=== PATIENT | female | born 1950 | race Two or more races ===

== ENCOUNTER 2017-06-26 12:52 | Emergency (ER) | payer MEDICARE, OTHER ==
[~2017-06-26] VITALS: Ht 157.5 cm; Wt 81.6 kg
[2017-06-26 12:55] VITALS: BP 112/71
[2017-06-26] MEDS ORDERED: ASPirin 81 mg TAB PO ONE (13:00)
[2017-06-26] MEDS ORDERED: SODIUM CHLORIDE 0.9% 1,000 ML IVB ONE (13:00)
[2017-06-26 13:26] LABS: Basophils # (auto) 0 uL; Basophils % (auto) 0.3 % (0.0-2.0); CONDITION Y; Eosinophils # (auto) 0.1 uL; Lymphocytes # (auto) 1.9 uL; Lymphocytes % (auto) 27.3 % (10.0-50.0); Mean Corpuscular Hemoglobin 29.9 pg (28.0-32.0); Mean Corpuscular Hgb Conc. 33.3 g/dL (32.0-36.0); Mean Corpuscular Volume 89.7 fL (80.0-100.0); Mean Platelet Volume 8.9 fL (7.4-10.4); Monocytes # (auto) 0.4 uL; Monocytes % (auto) 5.9 % (0.0-12.0); Neutrophils # (auto) 4.6 uL; Neutrophils % (auto) 64.5 % (37.0-80.0); Platelet Count (auto) 280 10^3/uL (140-450); Red Cell Distribution Width 13.4 % (11.6-16.0); White Blood Cell 7.1 10^3/uL (4.4-10.8)
[2017-06-26 13:42] LABS: Albumin 3.7 g/dL (3.4-5.0); BUN/Creatinine Ratio 21.7; Calcium 10.1 mg/dL (8.5-10.1); Magnesium 2.3 mg/dL (1.6-2.6); Potassium 3.8 mmol/L (3.5-5.1)
[2017-06-26 13:45] LABS: Bilirubin, Total 0.5 mg/dL (0.2-1.0); Total Protein 7.6 g/dL (6.4-8.2)
== END 2017-06-26 18:14 | disposition home or self-care (01) ==
LOC: ER 12:55
DX: I47.1 Supraventricular tachycardia (principal); E78.5 Hyperlipidemia, unspecified; I10 Essential (primary) hypertension; E07.9 Disorder of thyroid, unspecified; R42 Dizziness and giddiness
CPT/HCPCS: 36415; 71010; 80053; 83735; 85025; 93005; 94761; 96360; 99285; J7040

== ENCOUNTER 2018-01-10 10:10 | Emergency (ER) | payer MEDICARE, OTHER ==
[~2018-01-10] VITALS: Ht 157.5 cm; Wt 83.9 kg
[2018-01-10] MEDS ORDERED: ACETAMINOPHEN 325 MG TAB PO ONE (12:45)
[2018-01-10] MEDS ORDERED: ACETAMINOPHEN 500 MG TAB PO ONE (12:45)
[2018-01-10 14:01] VITALS: BP 109/65
== END 2018-01-10 14:06 | disposition home or self-care (01) ==
LOC: ER 10:10
DX: J02.9 Acute pharyngitis, unspecified (principal); I10 Essential (primary) hypertension; E78.5 Hyperlipidemia, unspecified
CPT/HCPCS: 71046; 87804

== ENCOUNTER 2018-01-12 00:45 | Emergency (ER) | payer MEDICARE ==
[~2018-01-12] VITALS: Ht 157.5 cm; Wt 74.8 kg
[2018-01-12 01:51] LABS: Basophils # (auto) 0.1 uL; Basophils % (auto) 1.5 % (0.0-2.0); Eosinophils # (auto) 0.2 uL; Eosinophils % (auto) 2.4 % (0.0-7.0); Hematocrit 38.5 % (36.0-46.0); Hemoglobin 12.6 g/dL (12.2-16.2); Lymphocytes # (auto) 0.7 uL; Lymphocytes % (auto) 10.3 % (10.0-50.0); Mean Corpuscular Hemoglobin 29.3 pg (28.0-32.0); Mean Corpuscular Hgb Conc. 32.8 g/dL (32.0-36.0); Mean Corpuscular Volume 89.4 fL (80.0-100.0); Monocytes # (auto) 0.8 uL; Monocytes % (auto) 12.6 % (0.0-12.0); Neutrophils # (auto) 4.8 uL; Neutrophils % (auto) 73.2 % (37.0-80.0); Platelet Count (auto) 219 10^3/uL (140-450); Red Blood Cells 4.31 10^6/uL (4.0-5.20); Red Cell Distribution Width 13.4 % (11.8-14.3); White Blood Cell 6.5 10^3/uL (4.4-10.8)
[2018-01-12 02:08] LABS: Albumin 3.4 g/dL (3.4-5.0); BUN/Creatinine Ratio 18.8; Calcium 9.5 mg/dL (8.5-10.1); Potassium 3.9 mmol/L (3.5-5.1)
[2018-01-12 02:11] LABS: Bilirubin, Total 0.3 mg/dL (0.2-1.0); Total Protein 7.6 g/dL (6.4-8.2)
[2018-01-12] MEDS ORDERED: SODIUM CHLORIDE 0.9% 500 ML IV ONE (08:20)
[2018-01-12 13:05] VITALS: BP 120/69
== END 2018-01-12 13:23 | disposition home or self-care (01) ==
LOC: EDBD 00:45 → ER 00:49
DX: J40 Bronchitis, not specified as acute or chronic (principal); B34.9 Viral infection, unspecified; M35.3 Polymyalgia rheumatica; E03.9 Hypothyroidism, unspecified; I10 Essential (primary) hypertension; E78.5 Hyperlipidemia, unspecified
CPT/HCPCS: 36415; 71045; 80053; 81002; 83880; 84443; 85025; 93005; 96360

== ENCOUNTER 2018-04-15 04:15 | Inpatient (IN) | payer MEDICARE, OTHER ==
[~2018-04-15] VITALS: Ht 144.8 cm; Wt 81.0 kg
[2018-04-15 06:19] LABS: Basophils # (auto) 0.1 uL; Eosinophils # (auto) 0.1 uL; Eosinophils % (auto) 1.7 % (0.0-7.0); Hematocrit 37.1 % (36.0-46.0); Hemoglobin 12.1 g/dL (12.2-16.2); Lymphocytes # (auto) 2.2 uL; Lymphocytes % (auto) 27.8 % (10.0-50.0); Mean Corpuscular Hemoglobin 30.1 pg (28.0-32.0); Mean Corpuscular Hgb Conc. 32.6 g/dL (32.0-36.0); Mean Corpuscular Volume 92.2 fL (80.0-100.0); Monocytes # (auto) 0.6 uL; Monocytes % (auto) 7.8 % (0.0-12.0); Neutrophils # (auto) 4.9 uL; Neutrophils % (auto) 61.7 % (37.0-80.0); Nucleated Red Blood Cells % 0.1 %; Platelet Count (auto) 264 10^3/uL (140-450); Red Blood Cells 4.02 10^6/uL (4.0-5.20); Red Cell Distribution Width 13.6 % (11.8-14.3)
[2018-04-15] MEDS ORDERED: SODIUM CHLORIDE 0.9% 1,000 ML IV ONE (06:30)
[2018-04-15] MEDS ORDERED: ASPirin 81 mg TAB PO ONE (06:30)
[2018-04-15 06:52] LABS: Albumin 3.1 g/dL (3.4-5.0); BUN/Creatinine Ratio 17.8; Bilirubin, Total 0.4 mg/dL (0.2-1.0); Calcium 10.4 mg/dL (8.5-10.1); Magnesium 2.3 mg/dL (1.6-2.6); Total Protein 7.3 g/dL (6.4-8.2)
[2018-04-15] MEDS ORDERED: ENOXAPARIN SOD 80 MG/0.8ML SYRINGE SC ONE (07:15)
[2018-04-15] MEDS ORDERED: TEMAZEPAM 15 MG CAP PO PRN (08:45)
[2018-04-15] MEDS ORDERED: MORPHINE SULFATE 8mg/ml INJ SDV IV PRN ×2 (08:45)
[2018-04-15] MEDS ORDERED: ACETAMINOPHEN 500 MG TAB PO PRN (08:45)
[2018-04-15] MEDS ORDERED: NITROGLYCERIN 0.4 MG SL TAB SL PRN (08:45)
[2018-04-15] MEDS ORDERED: LACTULOSE 20Gm/30ML SOLN PO PRN (08:45)
[2018-04-15] MEDS ORDERED: PROMETHAZINE HCL 25 MG/ML 1ML IV PRN (08:45)
[2018-04-15] MEDS ORDERED: LORazepam 0.5 MG TAB PO PRN (08:45)
[2018-04-15] MEDS ORDERED: HYDROcodone-ACET 5/325MG TAB PO PRN (08:45)
[2018-04-15 09:15] LABS: INR 0.95 (0.9-1.15); Partial Thromboplastin Time 27.1 sec (23.78-33.04); Prothrombin Time 10.2 sec (9.27-12.13)
[2018-04-15] MEDS: SODIUM CHLORIDE 0.9% 1,000 ML IV SCH ×2 (09:22→21:13)
[2018-04-15] MEDS ORDERED: METOPROLOL TARTRATE 25 MG TAB PO SCH (10:00)
[2018-04-15 13:25] VITALS: BP 117/70
[2018-04-15 14:17] LABS: Urine Bacteria NONE SEEN /hpf (None Seen); Urine Blood TRACE /uL (Negative); Urine Mucus FEW (None Seen); Urine Specific Gravity 1.013 (1.001-1.035); Urine WBC <1 /hpf (0 - 5)
[2018-04-15 14:35] LABS: Alcohol, Urine < 3.0 mg/dL (0-5); Amphetamine Screen, Urine NEGATIVE (NEGATIVE); Barbiturate Scree,Urine NEGATIVE (NEGATIVE); Benzodiazephine Screen, Urine NEGATIVE (NEGATIVE); Cannabinoid Screen, Urine NEGATIVE (NEGATIVE); Cocaine Screen, Urine NEGATIVE (NEGATIVE); Opiate Scree,Urine NEGATIVE (NEGATIVE); Phencyclidine Screen, Urine NEGATIVE (NEGATIVE)
[2018-04-15 14:59] VITALS: BP 117/70
[2018-04-15] MEDS ORDERED: ATOR20TA50 PO (15:12)
[2018-04-15 17:15] VITALS: BP 109/53
[2018-04-15] MEDS: METOPROLOL TARTRATE 50 MG TAB PO SCH (21:30)
[2018-04-15] MEDS: AMIODARONE HCL 200 MG TAB PO SCH (21:30)
[2018-04-15 22:00] VITALS: BP 108/59
[2018-04-15] MEDS ORDERED: ATORVASTATIN 20 MG TAB PO SCH (22:00)
[2018-04-16 05:12] VITALS: BP 121/70
[2018-04-16 07:11] LABS: Cholesterol 164 mg/dL (< 200); HDL Cholesterol 46 mg/dL (40-59); LDL Cholesterol 107 mg/dL (< 100); Triglycerides 166 mg/dL (< 150)
[2018-04-16 09:00] VITALS: BP 115/50
[2018-04-16] MEDS: AMIODARONE HCL 200 MG TAB PO SCH (09:18)
[2018-04-16] MEDS: METOPROLOL TARTRATE 50 MG TAB PO SCH (09:19)
[2018-04-16] MEDS: SODIUM CHLORIDE 0.9% 1,000 ML IV SCH (09:21)
[2018-04-16] MEDS ORDERED: ENOXAPARIN SOD 40 MG/0.4 ML SYRINGE SC SCH (10:00)
[2018-04-16] MEDS ORDERED: ASPirin 81 mg TAB PO SCH (10:00)
[2018-04-16 12:11] LABS: BUN/Creatinine Ratio 15.7; Calcium 10.1 mg/dL (8.5-10.1); Magnesium 2.6 mg/dL (1.6-2.6); Potassium 4.9 mmol/L (3.5-5.1)
[2018-04-16 13:00] VITALS: BP 109/65
[2018-04-16 13:39] VITALS: BP 109/65
== END 2018-04-16 17:37 | disposition home or self-care (01) | DRG 309 ==
LOC: EDBD 04:15 → ER 04:19 → TELE 04:20 → TELE-WESTW 12:36
PROVIDERS: ADMIT Internal Medicine; ATTEND Internal Medicine
PROC: 5A2204Z Restoration of Cardiac Rhythm, Single (ICD-10-PCS; principal; 2018-04-15)
DX: I47.1 Supraventricular tachycardia (principal); I24.9 Acute ischemic heart disease, unspecified; I11.9 Hypertensive heart disease without heart failure; D64.9 Anemia, unspecified; E21.3 Hyperparathyroidism, unspecified; E66.9 Obesity, unspecified; E78.5 Hyperlipidemia, unspecified; Z68.38 Body mass index [BMI] 38.0-38.9, adult; Z82.49 Family history of ischemic heart disease and other diseases of the circulatory system
CPT/HCPCS: 36415; 71045; 80048; 80053; 80061; 80307; 81001; 82550; 83735; 83880; 84443; 84484; 85025; 85379; 85610; 85652; 85730; 93005; 93306; 96360; 96372; 97163

== ENCOUNTER 2021-11-10 15:33 | Emergency (ER) | payer OTHER ==
[~2021-11-10] VITALS: Ht 152.4 cm; Wt 77.1 kg
[~2021-11-10 15:33] MED LIST: ATOR20TA50 PO
[2021-11-10 19:57] VITALS: BP 119/81
== END 2021-11-10 20:08 | disposition home or self-care (01) ==
LOC: ER 15:33
DX: U07.1 COVID-19 (principal); M79.10 Myalgia, unspecified site; R51.9 Headache, unspecified; E66.9 Obesity, unspecified; I10 Essential (primary) hypertension; E78.5 Hyperlipidemia, unspecified; Z68.33 Body mass index [BMI] 33.0-33.9, adult
CPT/HCPCS: 36415; 71046; 87426

== ENCOUNTER 2022-07-08 10:40 | Emergency (ER) | payer OTHER, MEDICAID ==
[~2022-07-08] VITALS: Ht 152.4 cm; Wt 78.6 kg
[2022-07-08 12:49] LABS: Basophils # (auto) 0.1 10 ^3/uL (0-0.2); Basophils % (auto) 0.8 % (0.0-2.0); Eosinophils # (auto) 0.1 10 ^3/uL (0-0.8); Eosinophils % (auto) 1.1 % (0.0-7.0); Hematocrit 39.4 % (36.0-46.0); Hemoglobin 12.6 g/dL (12.2-16.2); Lymphocytes # (auto) 1.9 10 ^3/uL (0.4-5.4); Lymphocytes % (auto) 20.3 % (10.0-50.0); Mean Corpuscular Hemoglobin 29.6 pg (28.0-32.0); Mean Corpuscular Hgb Conc. 32.1 g/dL (32.0-36.0); Mean Corpuscular Volume 92.2 fL (80.0-100.0); Monocytes # (auto) 0.5 10 ^3/uL (0-1.3); Monocytes % (auto) 5.9 % (0.0-12.0); Neutrophils # (auto) 6.6 10 ^3/uL (1.6-8.6); Neutrophils % (auto) 71.9 % (37.0-80.0); Nucleated Red Blood Cells % 0.2 %; Red Blood Cells 4.27 10^6/uL (4.0-5.20); Red Cell Distribution Width 14.4 % (11.8-14.3); White Blood Cell 9.2 10^3/uL (4.4-10.8)
[2022-07-08 13:00] LABS: Albumin 3.6 g/dL (3.4-5.0); Calcium 10.7 mg/dL (8.5-10.1); Potassium 4.2 mmol/L (3.5-5.1)
[2022-07-08 13:05] LABS: BUN/Creatinine Ratio 18.1; Bilirubin, Total 0.7 mg/dL (0.2-1.0); Total Protein 7.4 g/dL (6.4-8.2)
[2022-07-08 13:21] LABS: Urine Bacteria NONE SEEN /hpf (None Seen); Urine Blood TRACE /uL (Negative); Urine Mucus FEW (None Seen); Urine Specific Gravity 1.017 (1.001-1.035); Urine WBC 9 /hpf (0 - 5)
[2022-07-08 15:45] VITALS: BP 118/60
[2022-07-08] MEDS ORDERED: SODIUM CHLORIDE 0.9% 1,000 ML IV ONE (16:00)
== END 2022-07-08 21:24 | disposition home or self-care (01) ==
LOC: ER 10:40
DX: E83.52 Hypercalcemia (principal); E21.3 Hyperparathyroidism, unspecified; I10 Essential (primary) hypertension; E78.5 Hyperlipidemia, unspecified; R07.89 Other chest pain; Z79.899 Other long term (current) drug therapy
CPT/HCPCS: 36415; 71045; 80053; 81001; 83735; 84484; 85025; 93005; 96360; 99285; J7030

== ENCOUNTER 2022-08-21 08:06 | Inpatient (IN) | payer OTHER, MEDICAID ==
[~2022-08-21] VITALS: Ht 157.5 cm; Wt 78.8 kg
[2022-08-21 09:06] LABS: Basophils # (auto) 0.1 10 ^3/uL (0-0.2); Basophils % (auto) 0.9 % (0.0-2.0); Eosinophils # (auto) 0.2 10 ^3/uL (0-0.8); Eosinophils % (auto) 2.1 % (0.0-7.0); Hematocrit 37.6 % (36.0-46.0); Hemoglobin 12.4 g/dL (12.2-16.2); Lymphocytes # (auto) 2.2 10 ^3/uL (0.4-5.4); Mean Corpuscular Hemoglobin 30.6 pg (28.0-32.0); Mean Corpuscular Hgb Conc. 32.9 g/dL (32.0-36.0); Mean Corpuscular Volume 92.9 fL (80.0-100.0); Monocytes # (auto) 0.5 10 ^3/uL (0-1.3); Monocytes % (auto) 7.4 % (0.0-12.0); Neutrophils # (auto) 4.3 10 ^3/uL (1.6-8.6); Neutrophils % (auto) 59.6 % (37.0-80.0); Red Blood Cells 4.05 10^6/uL (4.0-5.20); Red Cell Distribution Width 14.7 % (11.8-14.3); White Blood Cell 7.2 10^3/uL (4.4-10.8)
[2022-08-21 09:31] LABS: Albumin 3.4 g/dL (3.4-5.0); Calcium 10.5 mg/dL (8.5-10.1); Magnesium 2.5 mg/dL (1.6-2.6); Potassium 4.6 mmol/L (3.5-5.1)
[2022-08-21 09:38] LABS: Bilirubin, Total 0.5 mg/dL (0.2-1.0); Total Protein 6.7 g/dL (6.4-8.2)
[2022-08-21] MEDS ORDERED: ASPirin 325 MG TAB PO ONE (09:45)
[2022-08-21] MEDS ORDERED: SOD CHL 0.45% 1,000 ML IV ONE (11:00)
[2022-08-21] MEDS ORDERED: MORPHINE SULFATE INJ 2 MG/ml SYRG IV PRN ×2 (11:00)
[2022-08-21] MEDS ORDERED: ONDANSETRON HCL 4 MG/2 ML VIAL IV PRN (11:00)
[2022-08-21] MEDS ORDERED: HYDROcodone-ACET 5/325MG TAB PO PRN (11:00)
[2022-08-21] MEDS ORDERED: NITROGLYCERIN 0.4 MG SL TAB SL PRN (11:00)
[2022-08-21 11:44] LABS: Magnesium 2.4 mg/dL (1.6-2.6); Phosphorus 1.8 mg/dL (2.5-4.90)
[2022-08-21 12:15] LABS: Cholesterol 151 mg/dL (< 200)
[2022-08-21 12:18] LABS: HDL Cholesterol 74 mg/dL (40-59); LDL Cholesterol 70 mg/dL (< 100); Triglycerides 71 mg/dL (< 150)
[2022-08-21 14:43] LABS: Urine Bacteria NONE SEEN /hpf (None Seen); Urine Blood Negative /uL (Negative); Urine Specific Gravity 1.004 (1.001-1.035); Urine WBC 1 /hpf (0 - 5)
[2022-08-21] MEDS: ATORVASTATIN 20 MG TAB PO SCH (22:00)
[2022-08-21] MEDS: METOPROLOL TARTRATE 25 MG TAB PO SCH (22:00)
[2022-08-22 04:38] LABS: Basophils # (auto) 0.1 10 ^3/uL (0-0.2); Eosinophils # (auto) 0.2 10 ^3/uL (0-0.8); Eosinophils % (auto) 2.7 % (0.0-7.0); Hematocrit 36.7 % (36.0-46.0); Hemoglobin 12.2 g/dL (12.2-16.2); Lymphocytes # (auto) 2.3 10 ^3/uL (0.4-5.4); Lymphocytes % (auto) 30.7 % (10.0-50.0); Mean Corpuscular Hemoglobin 30.9 pg (28.0-32.0); Mean Corpuscular Hgb Conc. 33.3 g/dL (32.0-36.0); Mean Corpuscular Volume 92.7 fL (80.0-100.0); Monocytes # (auto) 0.5 10 ^3/uL (0-1.3); Neutrophils # (auto) 4.5 10 ^3/uL (1.6-8.6); Neutrophils % (auto) 59.6 % (37.0-80.0); Nucleated Red Blood Cells % 0.1 %; Red Blood Cells 3.96 10^6/uL (4.0-5.20); Red Cell Distribution Width 14.6 % (11.8-14.3); White Blood Cell 7.5 10^3/uL (4.4-10.8)
[2022-08-22 04:49] LABS: Albumin 3.3 g/dL (3.4-5.0); Calcium 10.1 mg/dL (8.5-10.1); Potassium 4.3 mmol/L (3.5-5.1)
[2022-08-22 05:00] LABS: BUN/Creatinine Ratio 20.2; Bilirubin, Total 0.5 mg/dL (0.2-1.0); Total Protein 6.4 g/dL (6.4-8.2)
[2022-08-22] MEDS: ENOXAPARIN SOD 40 MG/0.4 ML SYRINGE SC SCH (09:17)
[2022-08-22] MEDS: PANTOPRAZOLE 40 MG TAB PO SCH (09:17)
[2022-08-22] MEDS: METOPROLOL TARTRATE 25 MG TAB PO SCH ×2 (10:00→22:00)
[2022-08-22] MEDS ORDERED: ASPirin 325 MG TAB PO SCH (10:00)
[2022-08-22] MEDS ORDERED: METOPROLOL TARTRATE 25 MG TAB PO ONE (15:15)
[2022-08-22 16:00] VITALS: BP 126/64
[2022-08-22] MEDS ORDERED: CHOL20002 PO (20:22)
[2022-08-22] MEDS ORDERED: CETI-120 PO (20:22)
[2022-08-22] MEDS ORDERED: PANT40TA57 PO (20:22)
[2022-08-22] MEDS ORDERED: CALC-474 (20:22)
[2022-08-22] MEDS ORDERED: ROSU1TAB15 PO (20:22)
[2022-08-22] MEDS ORDERED: ALEN35TA18 PO (20:22)
[2022-08-22] MEDS: ATORVASTATIN 20 MG TAB PO SCH (22:20)
[2022-08-22 23:40] VITALS: BP 102/56
[2022-08-23 06:11] VITALS: BP 108/49
[2022-08-23 08:00] VITALS: BP 123/86
[2022-08-23 08:49] VITALS: BP 116/60
[2022-08-23] MEDS: PANTOPRAZOLE 40 MG TAB PO SCH (09:07)
[2022-08-23] MEDS: ENOXAPARIN SOD 40 MG/0.4 ML SYRINGE SC SCH (09:07)
[2022-08-23] MEDS: METOPROLOL TARTRATE 25 MG TAB PO SCH (09:08)
[2022-08-23] MEDS ORDERED: ASPirin 81 mg TAB PO SCH (10:00)
[2022-08-23] MEDS ORDERED: ASPI-325 PO (11:43)
[2022-08-23] MEDS ORDERED: METO25TA36 PO (11:43)
[2022-08-23 12:57] VITALS: BP 123/86
== END 2022-08-23 14:39 | disposition home or self-care (01) | DRG 309 ==
LOC: ER 08:06 → EDBD 08:06 → TELE 11:12 → TELE-WESTW 08-22 14:37
PROVIDERS: ADMIT Nurse Practitioner Family; ATTEND Nurse Practitioner Family
DX: I47.1 Supraventricular tachycardia (principal); E87.0 Hyperosmolality and hypernatremia; I24.9 Acute ischemic heart disease, unspecified; E87.1 Hypo-osmolality and hyponatremia; E78.5 Hyperlipidemia, unspecified; E21.3 Hyperparathyroidism, unspecified; Z20.822 Contact with and (suspected) exposure to COVID-19; E87.8 Other disorders of electrolyte and fluid balance, not elsewhere classified; I10 Essential (primary) hypertension; M81.0 Age-related osteoporosis without current pathological fracture; Z79.899 Other long term (current) drug therapy
CPT/HCPCS: 36415; 71045; 80053; 80061; 81001; 82306; 83735; 83880; 83930; 83970; 84100; 84300; 84443; 84484; 85025; 93005; 93306; 96360; 96372; 99291; G0378

== ENCOUNTER 2023-06-15 04:37 | Emergency (ER) | payer OTHER, MEDICAID ==
[~2023-06-15] VITALS: Ht 165.1 cm; Wt 78.0 kg
[~2023-06-15 04:37] MED LIST changes: +ALEN35TA18 PO; +ASPI-325 PO; +CALC-518; +CETI-120 PO; +CHOL20002 PO; +METO25TA36 PO; +PANT40TA57 PO; +ROSU1TAB15 PO
[2023-06-15] MEDS ORDERED: OXYCODONE W/ ACETAMINOPHEN 5/325MG TABLET PO ONE (05:15)
[2023-06-15 07:28] VITALS: BP 119/42; PULSE 61; RESP 18; TEMP 97.9; O2SAT 98
[2023-06-15] MEDS ORDERED: TRAM50TA2 PO (08:53)
[2023-06-15] MEDS ORDERED: DexAMETHasone SOD PHOS 4 MG/1ML SDV INJ IM ONE (09:00)
== END 2023-06-15 09:16 | disposition home or self-care (01) ==
LOC: ER 04:37
DX: M54.2 Cervicalgia (principal); E78.5 Hyperlipidemia, unspecified; I10 Essential (primary) hypertension; Z79.899 Other long term (current) drug therapy; Z79.82 Long term (current) use of aspirin; Z98.890 Other specified postprocedural states
CPT/HCPCS: 72125; 96372; 99285; J1100

== ENCOUNTER 2023-07-12 19:13 | Emergency (ER) | payer OTHER, MEDICAID ==
[~2023-07-12] VITALS: Ht 154.9 cm; Wt 78.0 kg
[~2023-07-12 19:13] MED LIST changes: +TRAM50TA2 PO
[2023-07-13] MEDS ORDERED: ONDANSETRON ODT 4 MG TAB PO ONE (00:30)
[2023-07-13] MEDS ORDERED: MORPHINE SULFATE INJ 2 MG/ml SYRG IM ONE (00:30)
[2023-07-13] MEDS ORDERED: ACE3T PO (00:42)
[2023-07-13] MEDS ORDERED: HYDROcodone-ACET 5/325MG TAB PO ONE (01:00)
[2023-07-13 01:02] VITALS: BP 130/70; PULSE 62; RESP 18; TEMP 98.1; O2SAT 98
== END 2023-07-13 01:34 | disposition home or self-care (01) ==
LOC: ER 19:19
DX: S16.1XXA Strain of muscle, fascia and tendon at neck level, initial encounter (principal); S46.911A Strain of unspecified muscle, fascia and tendon at shoulder and upper arm level, right arm, initial encounter; R51.9 Headache, unspecified; E78.5 Hyperlipidemia, unspecified; I10 Essential (primary) hypertension; Z79.899 Other long term (current) drug therapy; Z79.82 Long term (current) use of aspirin; Z98.890 Other specified postprocedural states; X58.XXXA Exposure to other specified factors, initial encounter; Y93.89 Activity, other specified; Y92.89 Other specified places as the place of occurrence of the external cause; Y99.8 Other external cause status
CPT/HCPCS: 70450; 72125; 73030; 99284; Q0162